=== PATIENT | female | born 1975 | race Caucasian/White ===

== ENCOUNTER → 2016-03-31 | Outpatient (CLI) | payer OTHER ==
--- NOTE | 2016-04-01 11:15 | MR ---
MR brain and MR lumbar spine without contrast HISTORY: Diplopia, low back pain, visual disturbance multiplanar multisequence imaging obtained through the brain and lumbar spine Correlation to brain CT 15 January 2016 Brain MRI: There is no restricted diffusion. There is no hemorrhage or hydrocephalus. Cerebellopontin e angles, corpus callosum, pituitary, cervical medullary junction are normal. Brain signal is within normal limits. The orbits show symmetric appearance. There are normal vascular flow voids. Left verte bral artery is dominant. Orbits show symmetric appearance. Mucosal disease present within the maxilla ry sinus right greater than left. IMPRESSION: Unremarkable brain MRI. Mild sinus disease. Lumbar spine MRI: Lumbar vertebral bodies show preserved height, alignment, and cervical cord signal is normal. Some minimal endplate discogenic marrow signal change and spondylosis is present, interver tebral disc spaces are remarkable for some mild loss of disc height and signal. There is no significa nt central stenosis, foraminal encroachment, or sizable disc herniation. Facet arthropathy changes pr esent especially at L4-5, L3-4 with hypertrophy of the ligamentum flavum causing some lateral recess stenosis. The conus is unremarkable. L4-5: Small central posterior disc protrusion causes minimal anterior mass effect on the thecal sac L3-4: Small central posterior disc bulge causes minimal anterior mass effect on the thecal sac. L1-2: Small central posterior disc bulge causes only slight anterior mass effect on the thecal sac IMPRESSION: Facet arthropathy. No sizable disc herniation. Mild degenerative disc disease.
== END | disposition home or self-care (01) ==
LOC: RADMRIMAIN 19:38
PROVIDERS: ATTEND Psychiatry & Neurology Pain Medicine
DX: M51.36 Other intervertebral disc degeneration, lumbar region (principal); H53.8 Other visual disturbances; H53.2 Diplopia; R51 Headache
CPT/HCPCS: 70551; 72148

== ENCOUNTER → 2016-06-14 | Outpatient (CLI) | payer OTHER ==
[2016-06-14 13:16] LABS: Appearance,CSF Clear
[2016-06-17 14:49] LABS: Lyme Specimen Source Not Provided
== END | disposition home or self-care (01) ==
LOC: LABWHC1 07:26
PROVIDERS: ATTEND Psychiatry & Neurology Neurology
DX: H53.2 Diplopia (principal); H46.9 Unspecified optic neuritis; R53.82 Chronic fatigue, unspecified; R53.1 Weakness; R42 Dizziness and giddiness; H53.8 Other visual disturbances; R90.82 White matter disease, unspecified
CPT/HCPCS: 36415; 82040; 82042; 82784; 83873; 83916; 84157; 87476; 88108; 89050

== ENCOUNTER → 2016-06-20 | Outpatient (CLI) | payer OTHER ==
--- NOTE | 2016-06-23 11:13 | MM ---
Reason for exam: screening (asymptomatic). Baseline mammogram. History: Family history of breast cancer in paternal grandmother. Physical Findings: Nurse did not find any significant physical abnormalities on exam. MG Screening Mammo w CAD Bilateral CC and MLO view(s) were taken. XCCL view(s) were taken of the right breast. The breast tissue is heterogeneously dense. This may lower the sensitivity of mammography. There is no discrete abnormality. No significant new findings when compared with previous films. These results were verbally communicated with the patient and result sheet given to the patient on 06/20/16. ASSESSMENT: Negative, BI-RAD 1 RECOMMENDATION: Routine screening mammogram of both breasts in 1 year.
== END ==
LOC: RADMAMWWP 06:51
PROVIDERS: ATTEND Internal Medicine
DX: Z12.31 Encounter for screening mammogram for malignant neoplasm of breast (principal)

== ENCOUNTER → 2016-09-01 | Outpatient (CLI) | payer OTHER ==
--- NOTE | 2016-09-01 18:52 | US ---
EXAMINATION TYPE: US carotid duplex BILAT DATE OF EXAM: 09/01/2016 COMPARISON: NONE CLINICAL HISTORY: R42 Dizziness. Syncope EXAM MEASUREMENTS: RIGHT: Peak Systolic Velocity (PSV) cm/sec ----- Right CCA: 111.9 ----- Right ICA: 99.3 ----- Right ECA: 99.3 ICA/CCA ratio: 0.9 RIGHT: End Diastole cm/sec ----- Right CCA: 37.4 ----- Right ICA: 46.2 ----- Right ECA: 18.4 LEFT: Peak Systolic Velocity (PSV) cm/sec ----- Left CCA: 90.4 ----- Left ICA: 90.4 ----- Left ECA: 86.7 ICA/CCA ratio: 1.0 LEFT: End Diastole cm/sec ----- Left CCA: 31.1 ----- Left ICA: 39.9 ----- Left ECA: 17.2 VERTEBRALS (direction of flow): Right Vertebral: Antegrade Left Vertebral: Antegrade Minimal plaque visualized bilaterally. No elevated velocities Grayscale, color Doppler, spectral Doppler imaging performed of the carotid arteries IMPRESSION: No hemodynamic significant stenosis of the proximal internal carotid arteries bilaterall y by Doppler criteria, an indirect measurement of carotid stenosis
== END ==
LOC: RADUSMAIN 17:54
PROVIDERS: ATTEND Psychiatry & Neurology Neurology
DX: R42 Dizziness and giddiness (principal); R55 Syncope and collapse
CPT/HCPCS: 93880

== ENCOUNTER → 2018-04-11 | Outpatient (CLI) | payer OTHER ==
--- NOTE | 2018-04-12 11:22 | MM ---
Reason for exam: screening (asymptomatic). Last mammogram was performed 1 year and 10 months ago. History: Family history of breast cancer in maternal grandmother and breast cancer in paternal grandmother. Physical Findings: A clinical breast exam by your physician is recommended on an annual basis and results should be correlated with mammographic findings. MG Screening Mammo w CAD Bilateral CC and MLO view(s) were taken. Prior study comparison: June 20, 2016, bilateral MG screening mammo w CAD. The breast tissue is heterogeneously dense. This may lower the sensitivity of mammography. No suspicious abnormality. No significant changes when compared with prior studies. ASSESSMENT: Negative, BI-RAD 1 RECOMMENDATION: Routine screening mammogram of both breasts in 1 year.
== END | disposition home or self-care (01) ==
LOC: RADMAMWWP 14:57
PROVIDERS: ATTEND Internal Medicine
DX: Z12.31 Encounter for screening mammogram for malignant neoplasm of breast (principal)
CPT/HCPCS: 77067

== ENCOUNTER → 2018-07-27 | Outpatient (CLI) | payer OTHER ==
--- NOTE | 2018-07-27 15:49 | US ---
EXAMINATION TYPE: US abdomen complete DATE OF EXAM: 07/27/2018 COMPARISON: NONE CLINICAL HISTORY: R10.84 Generalized abdominal pain,Pelvic and perin. Generalized ABD pain EXAM MEASUREMENTS: Liver Length: 15.5 cm Gallbladder Wall: 0.1 cm CBD: 0.4 cm Spleen: 8.6 cm Right Kidney: 10.6 x 3.9 x 4.8 cm Left Kidney: 10.1 x 5.2 x 4.5 cm Pancreas: wnl, tail obscured by overlying bowel gas Liver: wnl Gallbladder: wnl Evidence for sonographic Suazo's sign: No CBD: wnl Spleen: wnl Right Kidney: wnl Left Kidney: wnl Upper IVC: wnl Abd Aorta: wnl No abnormality visualized to account for pt's symptoms The liver is homogenous. The intrahepatic portion of the IVC and proximal abdominal aorta are within normal limits. There is no evidence of cholelithiasis. Common bile duct is unremarkable. The visu alized portions of the pancreas are homogenous. The spleen is unremarkable. Kidneys are symmetric a nd free of hydronephrosis. No renal lesions are seen. IMPRESSION: Unremarkable abdominal ultrasound. No sonographic evidence of cholelithiasis nor acute ch olecystitis.
--- NOTE | 2018-07-27 15:50 | US ---
EXAMINATION TYPE: US pelvic complete DATE OF EXAM: 07/27/2018 COMPARISON: NONE CLINICAL HISTORY: R10.84 Generalized abdominal pain,Pelvic and perineal. Pt states generalized ABD pa in, Pt states recent abnormal vaginal bleeding, heavy and painful TECHNIQUE: Transabdominal (TA). Transabdominal sonographic images of the pelvis were acquired. Date of LMP: 07/10/2018 EXAM MEASUREMENTS: Uterus: 9.0 x 5.2 x 5.3 cm Endometrial Stripe: 1.2 cm Right Ovary: 3.8 x 2.5 x 1.8 cm Left Ovary: 3.7 x 3.8 x 2.4 cm 1. Uterus: Retroverted heterogenous 2. Endometrium: wnl 3. Right Ovary: wnl 4. Left Ovary: Dominant follicle= 2.3 x 2.0 x 2.4 cm 5. Bilateral Adnexa: wnl 6. Posterior cul-de-sac: wnl IMPRESSION: Dominant left ovarian follicle is likely physiologic. Uterus appears heterogenous and sma ll uterine leiomyomas are suspected that are ill-defined. Endometrial thickness is within normal limi ts for a premenopausal female.
== END | disposition home or self-care (01) ==
LOC: RADUSWWP 14:58
PROVIDERS: ATTEND Internal Medicine
DX: R10.2 Pelvic and perineal pain (principal); R10.84 Generalized abdominal pain
CPT/HCPCS: 76700; 76856

== ENCOUNTER → 2020-02-04 | Outpatient (CLI) | payer OTHER | END | disposition home or self-care (01) | LOC: LABWHC1 12:26 | PROVIDERS: ATTEND Internal Medicine | DX: R05 Cough (principal) | CPT/HCPCS: U0003; C9803 ==

== ENCOUNTER 2021-03-17 13:02 | Emergency (ER) | payer OTHER ==
[2021-03-17 14:18] LABS: Basophils # (A) 0.1 k/uL (0-0.2); Basophils % (A) 1 %; Eosinophils # (A) 0.1 k/uL (0-0.7); Eosinophils % (A) 1 %; HCT 45.6 % (34.0-46.0); HGB 14.9 gm/dL (11.4-16.0); Lymphocytes # (A) 1.5 k/uL (1.0-4.8); Lymphocytes % (A) 24 %; MCH 30.3 pg (25.0-35.0); MCHC 32.8 g/dL (31.0-37.0); MCV 92.4 fL (80.0-100.0); Mean Platelet Volume 7.1; Monocytes # (A) 0.3 k/uL (0-1.0); Monocytes % (A) 5 %; Neutrophils # (A) 4.2 k/uL (1.3-7.7); Neutrophils % (A) 67 %; Platelet Count 306 k/uL (150-450); RBC 4.93 m/uL (3.80-5.40); RDW 12.7 % (11.5-15.5); WBC 6.4 k/uL (3.8-10.6)
[2021-03-17 14:32] LABS: ALT 20 U/L (4-34); AST 23 U/L (14-36); African American GFR (CKD) >90 (>60 ml/min/1.73 sqM); Albumin 4.4 g/dL (3.5-5.0); Alkaline Phosphatase 55 U/L (38-126); Anion Gap 10 mmol/L; Blood Urea Nitrogen 14 mg/dL (7-17); Calcium 9.4 mg/dL (8.4-10.2); Carbon Dioxide 24 mmol/L (22-30); Chloride 104 mmol/L (98-107); Glucose 104 mg/dL (74-99); Non-African American GFR(CKD) >90 (>60 ml/min/1.73 sqM); Potassium 4.1 mmol/L (3.5-5.1); Sodium 138 mmol/L (137-145); Total Bilirubin 0.4 mg/dL (0.2-1.3); Total Protein 7.6 g/dL (6.3-8.2)
[2021-03-17 14:35] LABS: INR 0.9 (<1.2); Partial Thromboplastin Time 24.3 sec (22.0-30.0); Prothrombin Time 9.6 sec (9.0-12.0)
[2021-03-17 14:59] LABS: Appearance,Urine Clear (Clear); Bilirubin,Urine Negative (Negative); Blood,Urine Negative (Negative); Color,Urine Light Yellow; Glucose,Urine (UA) Negative (Negative); Ketones,Urine Negative (Negative); Leukocyte Esterase,Urine Trace (Negative); Mucus,Urine Rare /hpf; Nitrite,Urine Negative (Negative); Protein,Urine Negative (Negative); RBC,Urine 1 /hpf (0-5); Specific Gravity,Urine 1.011 (1.001-1.035); Squamous Epithelial Cell,Urine 1 /hpf (0-4); Urobilinogen,Urine <2.0 mg/dL (<2.0); WBC,Urine 3 /hpf (0-5)
--- NOTE | 2021-03-17 15:09 | XR ---
EXAMINATION TYPE: XR chest 2V DATE OF EXAM: 03/17/2021 COMPARISON: None HISTORY: 45-year-old female confusion, left arm tingling, altered mental status TECHNIQUE: PA and lateral views FINDINGS: Heart normal size. Aorta and pulmonary vasculature within normal limits. Mild interstitial prominence of the chronic appearance. No consolidation or pleural effusion. IMPRESSION: Chronic appearing changes without acute cardiopulmonary process.
--- NOTE | 2021-03-17 15:11 | CT ---
EXAMINATION TYPE: CT brain wo con DATE OF EXAM: 03/17/2021 COMPARISON: 01/15/2016 HISTORY: 45-year-old female with neurologic deficit, acute, stroke suspected, Hypertension, left arm heaviness and tingling. TECHNIQUE: Examination was done in axial plane without intravenous contrast. Coronal and sagittal r econstructions performed. CT DLP: 1064.4 mGycm Automated exposure control for dose reduction was used. FINDINGS: There is no evidence of acute intracranial hemorrhage, acute ischemic changes, mass, mass-effect, or extra-axial fluid collection. There is no effacement of cerebral sulci or basal subarachnoid cister ns. There is no hydrocephalus. There is no midline shift. [place]-white matter distinction is preserv ed. Paranasal sinuses and mastoid air cells well pneumatized. Orbits and globes are intact. IMPRESSION: No acute intracranial abnormality seen. Consider MRI if symptoms persist.
--- NOTE | 2021-03-17 15:47 | ED ---
General Adult HPI - General Chief complaint: Neuro Symptoms/Deficit Stated complaint: left arm tingling, nausea, chest pressure Time Seen by Provider: 03/17/21 15:11 Source: patient, family Mode of arrival: ambulatory Limitations: no limitations - History of Present Illness Initial comments: The patient is a 45-year-old female who presents to the emergency department with complaints of elevated blood pressure, chest pain, nausea, and bilateral arm numbness. Her PCP started her on lisinopril about a week ago, and states that since then she just has not felt right. She is unsure if her symptoms are related. She complains of chest pressure, nausea, dizziness, vomiting, leg heaviness, dyspnea on exertion, and feeling overall not well. Reports a cardiac history in her grandfather who had a myocardial infarction in his 60s. She saw Dr. Graham, cardiology, a few years ago for palpitations and a family history of cardiac issues. States that she had a full workup, and no issues were found. She then saw Dr. Graham again two days ago, who advised a repeat echo. However, due to her insurance, she is unable to have the echo completed until April. Onset/Timin -: week(s) - Related Data Home Medications Medication Instructions Recorded Confirmed Nitroglycerin Sl Tabs [Nitrostat] 0.4 mg SUBLINGUAL Q5M PRN 03/17/21 03/17/21 Norethindrone-E.estradiol-Iron 1 tab PO DAILY 03/17/21 03/17/21 [Junel Fe 1.5 mg-30 Mcg Tablet] lisinopriL [Prinivil] 20 mg PO DAILY 03/17/21 03/17/21 Allergies Allergy/AdvReac Type Severity Reaction Status Date / Time lactose AdvReac Nausea Verified 03/17/21 16:20 milk chocolate AdvReac Nausea, Uncoded 03/17/21 16:20 upset stomach Review of Systems ROS Statement: Those systems with pertinent positive or pertinent negative responses have been documented in the HPI. ROS Other: All systems not noted in ROS Statement are negative. Constitutional: Denies: fever, chills Respiratory: Reports: cough, dyspnea Cardiovascular: Reports: dyspnea on exertion. Denies: palpitations Endocrine: Reports: fatigue Gastrointestinal: Reports: nausea, vomiting Neurological: Reports: headache Past Medical History Past Medical History: Hypertension History of Any Multi-Drug Resistant Organisms: MRSA Date of last positivie culture/infection: 2019 MDRO Source:: Stomach. Past Surgical History: No Surgical Hx Reported Past Psychological History: No Psychological Hx Reported Smoking Status: Former smoker Past Alcohol Use History: Occasional Past Drug Use History: None Reported General Exam Limitations: no limitations General appearance: alert, in no apparent distress Head exam: Present: atraumatic, normocephalic, normal inspection Respiratory exam: Present: normal lung sounds bilaterally. Absent: respiratory distress, wheezes, rales, rhonchi, stridor Cardiovascular Exam: Present: regular rate, normal rhythm, normal heart sounds. Absent: systolic murmur, diastolic murmur, rubs, gallop, clicks GI/Abdominal exam: Present: soft, normal bowel sounds. Absent: distended, tenderness, guarding, rebound, rigid Left Lower Leg exam: Present: normal inspection, full ROM. Absent: tenderness, swelling Right Lower Leg exam: Present: normal inspection, full ROM. Absent: tenderness, swelling Neurological exam: Present: alert, oriented X3, CN II-XII intact Psychiatric exam: Present: normal affect, normal mood Skin exam: Present: warm, dry, intact, normal color. Absent: rash Course Vital Signs 03/17/21 13:46 Temperature 97.9 F Pulse Rate 108 H Respiratory 20 Rate Blood Pressure 145/94 O2 Sat by Pulse 97 Oximetry - Reevaluation(s) Time: 17:18 (Patient states she currently feels "whoozy" and has heaviness in her arms. ) Medical Decision Making - Medical Decision Making Patient presents with multiple vague complaints including chest pressure, diz ziness, bilateral arm and leg heaviness, nausea, vomiting, and feeling generally unwell. CBC, CMP, coags, UA, COVID, influenza, 2 troponins, EKG, CT Scan of brain, and chest x-ray were unremarkable. Physical exam also unremarkable. Unclear if symptoms are related to the Lisinopril, advised she discuss this with the prescribing provider. Patient stable for discharge home and will continue to follow up with cardiology on an outpatient basis. - Lab Data Result diagrams: 03/17/21 13:55 03/17/21 13:55 Lab Results 03/17/21 03/17/21 03/17/21 Range/Units 13:55 13:55 13:55 WBC 6.4 (3.8-10.6) k/uL RBC 4.93 (3.80-5.40) m/uL Hgb 14.9 (11.4-16.0) gm/dL Hct 45.6 (34.0-46.0) % MCV 92.4 (80.0-100.0) fL MCH 30.3 (25.0-35.0) pg MCHC 32.8 (31.0-37.0) g/dL RDW 12.7 (11.5-15.5) % Plt Count 306 (150-450) k/uL MPV 7.1 Neutrophils % 67 % Lymphocytes % 24 % Monocytes % 5 % Eosinophils % 1 % Basophils % 1 % Neutrophils # 4.2 (1.3-7.7) k/uL Lymphocytes # 1.5 (1.0-4.8) k/uL Monocytes # 0.3 (0-1.0) k/uL Eosinophils # 0.1 (0-0.7) k/uL Basophils # 0.1 (0-0.2) k/uL PT 9.6 (9.0-12.0) sec INR 0.9 (<1.2) APTT 24.3 (22.0-30.0) sec Sodium 138 (137-145) mmol/L Potassium 4.1 (3.5-5.1) mmol/L Chloride 104 (98-107) mmol/L Carbon Dioxide 24 (22-30) mmol/L Anion Gap 10 mmol/L BUN 14 (7-17) mg/dL Creatinine 0.66 (0.52-1.04) mg/dL Est GFR (CKD-EPI)AfAm >90 (>60 ml/min/1.73 sqM) Est GFR (CKD-EPI)NonAf >90 (>60 ml/min/1.73 sqM) Glucose 104 H (74-99) mg/dL Calcium 9.4 (8.4-10.2) mg/dL Total Bilirubin 0.4 (0.2-1.3) mg/dL AST 23 (14-36) U/L ALT 20 (4-34) U/L Alkaline Phosphatase 55 (38-126) U/L Troponin I (0.000-0.034) ng/mL Total Protein 7.6 (6.3-8.2) g/dL Albumin 4.4 (3.5-5.0) g/dL Urine Color Urine Appearance (Clear) Urine pH (5.0-8.0) Ur Specific [place] (1.001-1.035) Urine Protein (Negative) Urine Glucose (UA) (Negative) Urine Ketones (Negative) Urine Blood (Negative) Urine Nitrite (Negative) Urine Bilirubin (Negative) Urine Urobilinogen (<2.0) mg/dL Ur Leukocyte Esterase (Negative) Urine RBC (0-5) /hpf Urine WBC (0-5) /hpf Ur Squamous Epith Cells (0-4) /hpf Urine Mucus (None) /hpf 03/17/21 03/17/21 Range/Units 13:55 14:37 WBC (3.8-10.6) k/uL RBC (3.80-5.40) m/uL Hgb (11.4-16.0) gm/dL Hct (34.0-46.0) % MCV (80.0-100.0) fL MCH (25.0-35.0) pg MCHC (31.0-37.0) g/dL RDW (11.5-15.5) % Plt Count (150-450) k/uL MPV Neutrophils % % Lymphocytes % % Monocytes % % Eosinophils % % Basophils % % Neutrophils # (1.3-7.7) k/uL Lymphocytes # (1.0-4.8) k/uL Monocytes # (0-1.0) k/uL Eosinophils # (0-0.7) k/uL Basophils # (0-0.2) k/uL PT (9.0-12.0) sec INR (<1.2) APTT (22.0-30.0) sec Sodium (137-145) mmol/L Potassium (3.5-5.1) mmol/L Chloride (98-107) mmol/L Carbon Dioxide (22-30) mmol/L Anion Gap mmol/L BUN (7-17) mg/dL Creatinine (0.52-1.04) mg/dL Est GFR (CKD-EPI)AfAm (>60 ml/min/1.73 sqM) Est GFR (CKD-EPI)NonAf (>60 ml/min/1.73 sqM) Glucose (74-99) mg/dL Calcium (8.4-10.2) mg/dL Total Bilirubin (0.2-1.3) mg/dL AST (14-36) U/L ALT (4-34) U/L Alkaline Phosphatase (38-126) U/L Troponin I <0.012 (0.000-0.034) ng/mL Total Protein (6.3-8.2) g/dL Albumin (3.5-5.0) g/dL Urine Color Light Yellow Urine Appearance Clear (Clear) Urine pH 6.0 (5.0-8.0) Ur Specific [place] 1.011 (1.001-1.035) Urine Protein Negative (Negative) Urine Glucose (UA) Negative (Negative) Urine Ketones Negative (Negative) Urine Blood Negative (Negative) Urine Nitrite Negative (Negative) Urine Bilirubin Negative (Negative) Urine Urobilinogen <2.0 (<2.0) mg/dL Ur Leukocyte Esterase Trace H (Negative) Urine RBC 1 (0-5) /hpf Urine WBC 3 (0-5) /hpf Ur Squamous Epith Cells 1 (0-4) /hpf Urine Mucus Rare H (None) /hpf - EKG Data EKG shows normal: sinus rhythm Rate: tachycardia Interpretation: no acute changes - Radiology Data Radiology results: report reviewed, image reviewed Disposition Clinical Impression: Acute nonspecific chest pain with low risk of coronary artery disease, Dizziness, nonspecific Disposition: HOME SELF-CARE Condition: Stable Instructions (If sedation given, give patient instructions): Dizziness (ED), Hypertension (ED) Additional Instructions: Return to the emergency department if symptoms worsen or do not improve. Is patient prescribed a controlled substance at d/c from ED?: No Referrals: Mona Madison MD [Primary Care Provider] - 1-2 days
[2021-03-17 16:16] VITALS: RESP 18
[2021-03-17 17:57] VITALS: BP 127/81; PULSE 89; TEMP 97.8
== END 2021-03-17 17:56 | disposition home or self-care (01) ==
LOC: EC 13:02
DX: R07.89 Other chest pain (principal); R42 Dizziness and giddiness; I10 Essential (primary) hypertension; Z87.891 Personal history of nicotine dependence; Z20.822 Contact with and (suspected) exposure to COVID-19
CPT/HCPCS: 36415; 70450; 71046; 80053; 81001; 84484; 85025; 85379; 85610; 85730; 87502; 87635; 93005; 99285

== ENCOUNTER 2024-08-20 16:08 | Emergency (ER) | payer OTHER ==
[2024-08-20 16:15] VITALS: RESP 18
[2024-08-20] MEDS: ACETAMINOPHEN TAB 500 MG TAB PO STA (17:33)
--- NOTE | 2024-08-20 17:35 | XR ---
EXAMINATION TYPE: XR ankle complete LT DATE OF EXAM: 08/20/2024 COMPARISON: NONE HISTORY: Pain TECHNIQUE: 3 views of the left ankle are submitted for evaluation. FINDINGS: There is no evidence for fracture or dislocation. Ankle mortise is intact. Mild soft tissue swelling the ankle. Most pronounced over the lateral malleolus. Moderate-sized plantar calcaneal ent hesophyte. IMPRESSION: 1. No evidence for acute fracture. 2. Mild soft tissue swelling of the ankle which is most pronounced over the lateral malleolus. [facility], , 08/20/2024 5:32 PM
--- NOTE | 2024-08-20 18:09 | ED ---
General Adult HPI - General Chief complaint: Extremity Injury, Lower Stated complaint: left foot and ankle pain Time Seen by Provider: 08/20/24 16:40 Source: patient, RN notes reviewed, old records reviewed Mode of arrival: ambulatory Limitations: no limitations - History of Present Illness Initial comments: 49-year-old female presents emergency department complaint of left ankle pain. States that while at work she tripped and then rolled her ankle. States she inverted her ankle. It was wrapped in a sheet which caused her to lose her ba graham. Denies any sensory deficits. Has been walking on it. Presents for further evaluation. Did not fall. Suffered no injuries. - Related Data Home Medications Medication Instructions Recorded Confirmed Nitroglycerin Sl Tabs [Nitrostat] 0.4 mg SUBLINGUAL Q5M PRN 03/17/21 03/17/21 lisinopriL [Prinivil] 20 mg PO DAILY 03/17/21 03/17/21 norethindrone-e.estradioL-iron 1 tab PO DAILY 03/17/21 03/17/21 [Junel Fe 1.5 mg-30 Mcg Tablet] Allergies Allergy/AdvReac Type Severity Reaction Status Date / Time lactose AdvReac Nausea Verified 08/20/24 16:15 milk chocolate AdvReac Nausea, Uncoded 08/20/24 16:15 upset stomach Review of Systems ROS Statement: Those systems with pertinent positive or pertinent negative responses have been documented in the HPI. Review of Systems: CONST: Denies fever EYES: Denies blurry vision ENT: Denies nasal congestion C/V: Denies Chest pain RESP: Denies shortness of breath GI: Denies abdominal pain : Denies dysuria SKIN: Denies rash. MSK: Endorses left ankle pain NEURO: Denies headache ROS Other: All systems not noted in ROS Statement are negative. Past Medical History Past Medical History: Hypertension History of Any Multi-Drug Resistant Organisms: MRSA Date of last positivie culture/infection: 2019 MDRO Source:: Stomach. Past Surgical History: No Surgical Hx Reported Past Psychological History: No Psychological Hx Reported Smoking Status: Former smoker Past Alcohol Use History: Occasional Past Drug Use History: None Reported General Exam - General Exam Comments Initial Comments: General: Appears in no acute distress. HEAD: Normal with no signs of head trauma. EYES: EOMI. ENT: Hearing grossly intact. RESPIRATORY: No respiratory distress. C/V: Regular rate and rhythm. ABD: Abdomen is nondistended. EXT: No obvious deformity. Tenderness to palpation over the lateral malleolus of the left ankle. Tenderness to palpation slightly of the base of the foot. Neurovascularly intact throughout. SKIN: No rashes or lesions observed on exposed skin. NEURO: Alert and oriented. Limitations: no limitations Course Vital Signs 08/20/24 08/20/24 16:12 18:28 Temperature 97.9 F 98.0 F Pulse Rate 107 H 84 Respiratory 18 18 Rate Blood Pressure 145/95 162/03 O2 Sat by Pulse 97 97 Oximetry Medical Decision Making - Medical Decision Making Was pt. sent in by a medical professional or institution (, LEANNE, WELLNESS NURSE, urgent care, hospital, or senior care...) When possible be specific @ -No Did you speak to anyone other than the patient for history (EMS, parent, family, police, friend...)? What history was obtained from this source @ -No Did you review nursing and triage notes (agree or disagree)? Why? @ -I reviewed and agree with nursing and triage notes Were old charts reviewed (outside hosp., previous admission, EMS record, old EKG, old radiological studies, urgent care reports/EKG's, senior care records)? Report findings @ -No old charts were reviewed Differential Diagnosis (chest pain, altered mental status, abdominal pain women, abdominal pain men, vaginal bleeding, weakness, fever, dyspnea, syncope, headache, dizziness, GI bleed, back pain, seizure, CVA, palpatations, mental health, musculoskeletal)? @ -Left ankle sprain, left ankle fracture, left ankle dislocation. This list is not all-inclusive. EKG interpreted by me (3pts min.). @ -None none X-rays interpreted by me (1pt min.). @ -Left ankle shows no obvious acute traumatic injury. CT interpreted by me (1pt min.). @ -None done U/S interpreted by me (1pt. min.). @ -None done What testing was considered but not performed or refused? (CT, X-rays, U/S, labs)? Why? @ -None What meds were considered but not given or refused? Why? @ -None Did you discuss the management of the patient with other professionals (professionals i.e. , LEANNE, WELLNESS NURSE, lab, RT, psych nurse, psych social worker, drop worker, teacher, army officer, family independence case manager)? Give summary @ -No Was smoking cessation discussed for >3mins.? @ -No Was critical care preformed (if so, how long)? @ -No Were there social determinants of health that impacted care today? How? (Homelessness, low income, unemployed, alcoholism, drug addiction, transportation, low edu. Level, literacy, decrease access to med. care, long-term, rehab)? @ -No Was there de-escalation of care discussed even if they declined (Discuss DNR or withdrawal of care, Hospice)? DNR status @ -No What co-morbidities impacted this encounter? (DM, HTN, Smoking, COPD, CAD, Cancer, CVA, ARF, Chemo, Hep., AIDS, mental health diagnosis, sleep apnea, morbid obesity)? @ -None Was patient admitted / discharged? Hospital course, mention meds given and route, prescriptions, significant lab abnormalities, going to OR and other pertinent info. @ -Patient presents for left ankle pain. Exam relatively unremarkable. Vitals within acceptable limits. Will obtain an x-ray. Patient agreement this plan. X-ray returned negative for any obvious traumatic injury. I update the patient. Diagnosis is left ankle sprain. She will be given a Velcro removable splint and instructed to follow-up with her PCP. She will be given a work note. She was in agreement this plan. I instructed the patient to follow up with their PCP in the next 1-3 days. I explained that the patient should return to the emergency department if they experience any worsening symptoms. Strict return precautions were discussed with the patient. The patient expressed understanding of these instructions. I answered all questions that the patient had. The patient was discharged home in good condition with their prescriptions and follow up information. Undiagnosed new problem with uncertain prognosis? @ -No Drug Therapy requiring intensive monitoring for toxicity (Heparin, Nitro, Insulin, Cardizem)? @ -No Were any procedures done? @ -No Diagnosis/symptom? @ -Left ankle sprain Acute, or Chronic, or Acute on Chronic? @ -Acute Uncomplicated (without systemic symptoms) or Complicated (systemic symptoms)? @ -Uncomplicated Side effects of treatment? @ -No Exacerbation, Progression, or Severe Exacerbation? @ -No Poses a threat to life or bodily function? How? (Chest pain, [place], [place], pneumonia, PE, COPD, DKA, ARF, appy, cholecystitis, CVA, Diverticulitis, Homicidal, Suicidal, threat to staff... and all critical care pts) @ -Unlikely at this time Disposition Clinical Impression: Left ankle sprain Disposition: HOME SELF-CARE Condition: Good Instructions (If sedation given, give patient instructions): Ankle Sprain (ED) Is patient prescribed a controlled substance at d/c from ED?: No Referrals: Mona Madison MD [Primary Care Provider] - 1-2 days Time of Disposition: 18:00
[2024-08-20 18:30] VITALS: BP 162/03; PULSE 84; TEMP 98
== END 2024-08-20 18:39 | disposition home or self-care (01) ==
LOC: EC 16:08
DX: S93.402A Sprain of unspecified ligament of left ankle, initial encounter (principal); Z87.891 Personal history of nicotine dependence; Z91.011 Allergy to milk products; X50.1XXA Overexertion from prolonged static or awkward postures, initial encounter
CPT/HCPCS: 99283

== ENCOUNTER → 2024-08-21 | Outpatient (CLI) | payer OTHER ==
--- NOTE | 2024-08-21 16:17 | XR ---
EXAMINATION TYPE: XR foot complete LT DATE OF EXAM: 08/21/2024 4:00 PM COMPARISON: None CLINICAL INDICATION: Female, 49 years old with history of S93.602A UNSPECIFIED SPRAIN OF LEFT FOOT, I NITIAL; PHH, lateral pain TECHNIQUE: 3 views FINDINGS: Small type I accessory navicular. Ltpqj-qb-ondwqetf sized plantar heel spur. No acute fracture, sublu xation, or dislocation seen. IMPRESSION: Pbuge-wv-bisrimnh sized plantar heel spur. No acute osseous abnormalities seen. [facility], Workstation: [facility], 08/21/2024 4:15 PM
== END | disposition home or self-care (01) ==
LOC: RADXRMAIN 15:37
PROVIDERS: ATTEND Emergency Medicine
DX: S93.602A Unspecified sprain of left foot, initial encounter (principal); M77.32 Calcaneal spur, left foot; X58.XXXA Exposure to other specified factors, initial encounter